=== PATIENT | female | born 1995 | race Caucasian/White ===

== ENCOUNTER 2018-03-02 21:07 | Emergency (ER) | payer OTHER ==
[2018-03-02] MEDS: METHYLPREDNISOLONE 125 MG INJ IV (23:20)
[2018-03-02] MEDS: DIPHENHYDRAMINE 50 MG INJ IV (23:20)
== END 2018-03-02 23:45 | disposition home or self-care (01) ==
LOC: FTE 21:07
DX: L50.0 Allergic urticaria (principal)
CPT/HCPCS: 96374; 96375; 99284-25